=== PATIENT | male | born 1980 | race African-American/Black ===

== ENCOUNTER 2021-12-03 22:18 | Emergency (ER) | payer MEDICAID ==
[~2021-12-03] VITALS: Ht 177.8 cm; Wt 73.0 kg
[2021-12-03 22:38] VITALS: BP 101/76
== END 2021-12-04 04:30 | disposition left against medical advice (07) ==
LOC: ER 22:18
DX: R10.9 Unspecified abdominal pain (principal); R11.10 Vomiting, unspecified; Z87.19 Personal history of other diseases of the digestive system; Z90.49 Acquired absence of other specified parts of digestive tract
CPT/HCPCS: 99283